=== PATIENT | female | born 1960 ===

== ENCOUNTER 2023-05-10 05:45 | Day surgery (SDC) | payer OTHER ==
[~2023-05-10] VITALS: Ht 167.6 cm; Wt 70.3 kg
[~2023-05-10 05:45] MED LIST: CENTRUM ADULTS12 MCG PO; COZAAR50 MG PO; DETROL LA4 MG PO; DOLOGESIC 500-1 EACH PO; HORIZANT300 MG PO; LIPITOR40 MG PO; VASOFLEX TABLE1 EACH PO
== END 2023-05-10 10:45 | disposition home or self-care (01) ==
LOC: CIR.AMB 05:45
PROVIDERS: ATTEND Obstetrics & Gynecology
DX: N84.0 Polyp of corpus uteri (principal); N95.0 Postmenopausal bleeding; Z20.822 Contact with and (suspected) exposure to COVID-19; I10 Essential (primary) hypertension; I73.9 Peripheral vascular disease, unspecified